=== PATIENT | male | born 1965 | race American Indian/Alaskan Native ===

== ENCOUNTER 2016-05-06 12:20 | Outpatient (CLI) | payer SELFPAY ==
--- NOTE | 2016-05-06 13:32 | XRay Report ---
PA and lateral chest: Comparison is made to the prior study of April 26, 2016. The left base is much better visualized possibly indicating significant improvement in the pulmonary pattern. The left lung in general appears more lucent than the right lung suggesting that there may be a generalized obstructive or destructive pattern on the left. The right lung is clear with improvement in the bronchovascular pattern compared to prior study. The heart is normal in size. There is a dextroscoliosis of the lower thoracic spine. In general the overall pulmonary vascular pattern is improved compared to the prior study. Impression: 1. Interval improvement in congestive pattern seen on prior study. 2. Significant decrease of bronchovascular pattern in the left lung suggesting primary lung disease.
== END 2016-05-06 12:21 | disposition home or self-care (01) ==
LOC: XRAY 12:20
PROVIDERS: ATTEND Internal Medicine Hematology & Oncology
DX: R05 Cough (principal); M41.84 Other forms of scoliosis, thoracic region
CPT/HCPCS: 71020